=== PATIENT | female | born 1995 | race Caucasian/White ===

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

== ENCOUNTER 2017-02-13 22:57 | Emergency (ER) | payer BC ==
[~2017-02-13] VITALS: Ht 162.6 cm; Wt 45.4 kg
== END 2017-02-14 01:40 | disposition short-term general hospital (02) ==
LOC: ER 22:57
DX: N34.2 Other urethritis (principal); F17.210 Nicotine dependence, cigarettes, uncomplicated; Z91.040 Latex allergy status
CPT/HCPCS: 87660; J0696

== ENCOUNTER 2017-05-04 06:47 | Emergency (ER) | payer BC ==
[~2017-05-04] VITALS: Ht 167.6 cm; Wt 46.3 kg
== END 2017-05-04 07:40 | disposition short-term general hospital (02) ==
LOC: ER 06:47
PROC: 3E0T3BZ Introduction of Anesthetic Agent into Peripheral Nerves and Plexi, Percutaneous Approach (ICD-10-PCS; principal; 2017-05-04)
DX: S90.412A Abrasion, left great toe, initial encounter (principal); W22.8XXA Striking against or struck by other objects, initial encounter; Y93.02 Activity, running; Y92.008 Other place in unspecified non-institutional (private) residence as the place of occurrence of the external cause